=== PATIENT | female | born 1995 | race Asian ===

== ENCOUNTER 2022-04-24 12:10 | Emergency (ER) | payer OTHER ==
[2022-04-24 12:16] VITALS: BP 130/90
[2022-04-24] MEDS ORDERED: TETANUS/DIPHTHERIA/PERTUSSIS 0.5 ML SYRINGE IM ONE (12:22)
[2022-04-24] MEDS ORDERED: BACITRACIN ZINC OINT 1 PACKET TOP STA (12:22)
[2022-04-24] MEDS ORDERED: AMOX/CLAV 875 MG/125 MG TABLET PO STA (12:22)
--- NOTE | 2022-04-24 12:35 | ED Physician Documentation ---
PD HPI SKIN - Stated complaint Stated Complaint: DOG BITE NOSE - Chief complaint Chief Complaint: Laceration - History obtained from History obtained from: Patient - Additional information Additional information: Healthy young woman with unknown tetanus status was walking [place] dog [place] the dog park. Another person was walking her dog and the other person's dog bit her on the nose. Single dog bite. The other person said that the dog is vaccinated but the details are not known and she did not collect contact information at the time. PD PAST MEDICAL HISTORY - Present Medications Home Medications: Ambulatory Orders Medication Instructions Recorded Confirmed Amox/Clav 875/125 [Augmentin] 1 each PO Q12H #6 tablet 04/24/22 - Allergies Allergies/Adverse Reactions: Allergies Allergy/AdvReac Type Severity Reaction Status Date / Time No Known Drug Allergies Allergy Verified 04/24/22 12:14 PD ED PE NORMAL - Vitals Vital signs reviewed: Yes - General General: Alert and oriented X 3 - HEENT HEENT: Other (There is a shallow puncture wound measuring about 3 mm horizontally over the left side of the nose that is not through and through.) - Neuro Neuro: Alert and oriented X 3, Normal speech Results - Vitals Vitals: Vital Signs - 24 hr 04/24/22 12:14 Temperature 36.5 C Heart Rate 100 Respiratory 16 Rate Blood Pressure 130/90 H O2 Saturation 100 Oxygen O2 Source Room air PD Medical Decision Making - ED course ED course: Given the unknown source we discussed rabies vaccination, after discussion she declined. We did update her tetanus and start her on just a few days of Augmentin with wound care. Departure - Departure Disposition: 01 Home, Self Care Clinical Impression: Dog bite of nose Qualifiers: Encounter type: initial encounter Qualified Code(s): S01.25XA - Open bite of nose, initial encounter; W54.0XXA - Bitten by dog, initial encounter Condition: Good Record reviewed to determine appropriate education?: Yes Instructions: ED Bite Dog Prescriptions: Amox/Clav 875/125 [Augmentin] 1 each PO Q12H #6 tablet Comments: You were seen today for a superficial dog bite to the nose. You can wash it briefly with soap and water and then apply bacitracin ointment which is available [id number]. Then a simple Band-Aid. I think this will heal well without any significant scarring. Return for new or worsening symptoms.
== END 2022-04-24 12:54 | disposition home or self-care (01) ==
LOC: ED 12:10
DX: S01.25XA Open bite of nose, initial encounter (principal); W54.0XXA Bitten by dog, initial encounter; Y93.K1 Activity, walking an animal; Y92.830 Public park as the place of occurrence of the external cause
CPT/HCPCS: 90471; 90715; 99282; 99283; A9270